=== PATIENT | female | born 1975 | race Asian ===

== ENCOUNTER 2020-09-29 14:22 | Emergency (ER) | payer SELFPAY ==
--- NOTE | 2020-09-29 14:30 | NUR ---
ED Nurse Note: patient not in the waiting room.
--- NOTE | 2020-09-29 14:45 | NUR ---
ED Nurse Note: pt still not in the waiting room.
--- NOTE | 2020-09-29 16:26 | Emergency Room Report ---
History of Present Illness General Chief Complaint: To Be Triaged Present Illness HPI Left before being seen Review of Systems All Other Systems: negative except mentioned in HPI Medical Decision Making PA Attestation All diagnosis and treatment plans were discussed and reviewed by my supervising physician Dr. Bauman Diagnostic Impression: Primary Impression: Patient left without being seen ER Course Patient left before being seen Disposition: ELOPED Condition: Stable Referrals: NOT CHOSEN IPA/MD,REFERRING (PCP) Teresita Muniz Sep 29, 2020 16:26
== END 2020-09-29 16:00 | disposition left against medical advice (07) ==
LOC: EMR 14:40
DX: S09.90XA Unspecified injury of head, initial encounter (principal); X58.XXXA Exposure to other specified factors, initial encounter; Y93.9 Activity, unspecified; Y92.9 Unspecified place or not applicable; Z53.21 Procedure and treatment not carried out due to patient leaving prior to being seen by health care provider